=== PATIENT | male | born 1995 | race Caucasian/White ===

== ENCOUNTER 2021-12-05 18:45 | Emergency (ER) | payer OTHER, SELFPAY ==
[2021-12-05 19:04] VITALS: BP 157/111; PULSE 73; RESP 18; TEMP 36.8; O2SAT 99
--- NOTE | 2021-12-05 19:19 | ECG_ITS ---
Measurements Intervals Center Line Rate: 65 P: 20 DC: 145 QRS: 4 QRSD: 98 T: 7 QT: 380 QTc: 397 Interpretive Statements SINUS RHYTHM INCOMPLETE RIGHT BUNDLE BRANCH BLOCK MINIMAL VOLTAGE CRITERIA FOR LVH, CONSIDER NORMAL VARIANT [MEETS CRITERIA IN ONE OF: R(aVL), S(V1), R(V5), R(V5/V6)+S(V1)] NONSPECIFIC T-WAVE ABNORMALITY NO PREVIOUS ECG AVAILABLE FOR COMPARISON Electronically Signed On 12-06-2021 14:51:38 CDT by Vladimir Saunders M.D.
--- NOTE | 2021-12-05 19:19 | ED.GENADULT ---
HPI - General Adult General Chief complaint: Extremity Injury, Upper Stated complaint: shoulder pain History of Present Illness HPI narrative: 26 y/o male. PMHx non-reported. Presents to [facility] today with complaints of left upper back/shoulder blade pain, intermittently for > 3 months. He describes an intermittent 'sharp' pain. Worse with certain activity. Denies falls or trauma. No PURI, dizziness, chest pain, palpitations, dyspnea. No GI upset, epigastric pain, N/V. Has taken Tylenol with mild reliefs. In addition, he is noted to be hypertensive on today's visit. He tells me that he often suffers from anxiety, and has not been taking any medication for anxiety. Client relays that his Primary has seen him for elevated blood pressure and anxiety in the recent past, and that he has had 'normal' labs and chest imaging with no issues. Daily nicotine user. Stopped drinking energy drinks 1 week ago. No additional acute c/o upon PE. Related Data Allergies Allergy/AdvReac Type Severity Reaction Status Date / Time Penicillins Allergy Unknown Unknown Verified 12/05/21 19:15 Review of Systems Review of Systems: CONSTITUTIONAL: Denies fever, chills, sweats. EYES: Denies visual changes, redness, discharge. ENT: Denies rhinorrhea, congestion, sore throat, otalgia. CARDIOVASCULAR: Denies chest pain, palpitations, edema. RESPIRATORY: Denies dyspnea, wheezing, cough GASTROINTESTINAL: Denies abdominal pain, nausea, vomiting, diarrhea. GENITOURINARY: Denies dysuria, hematuria, abnormal discharge SKIN: Denies rash or itching. MUSCULOSKELETAL: Back pain, Lt upper > 3 months. Denies additional joint pain, or myalgia. NEUROLOGIC: Denies numbness, or focal weakness. PSYCHIATRIC: Positive anxiety. Denies depression. Exam Narrative: GENERAL: This is a well-nourished, well-developed adult, in no apparent distress. HEAD: normocephalic. EYES: PERRL. EARS: External ears normal. NOSE: External nose normal. THROAT: Mucous membranes moist. NECK: Neck supple, non-tender without lymphadenopathy, masses or thyromegaly. CARDIOVASCULAR: Regular rate and rhythm without murmurs, gallops, or rubs. RESPIRATORY: Clear to auscultation. Breath sounds equal bilaterally. No wheezes, rales, or rhonchi. GASTROINTESTINAL: Abdomen soft, non-tender, nondistended. Bowel sounds are active. No guarding. SKIN: warm, intact with no suspicious lesions or rash, good texture and turgor. NEURO: Alert, active, and age appropriate. No focal neurologic deficits. Good sensation and discrimination BUE. MUSCULOSKELETAL: With mild reproducible point tenderness lower LT scapula, no dislocation or deformity. Full and unrestricted ROM LUE. Remainder of musculoskeletal exam is negative. Course Course Level of Care: Express Care Visit Vital Signs Vital signs: Vital Signs Temperature 36.8 C 12/05/21 19:04 Pulse Rate 73 12/05/21 19:04 Respiratory Rate 18 12/05/21 19:04 Blood Pressure 157/111 H 12/05/21 19:04 Pulse Oximetry 99 12/05/21 19:04 Oxygen Delivery Room Air 12/05/21 19:04 Temperature 36.8 C 12/05/21 19:04 Pulse Rate 73 12/05/21 19:04 Respiratory Rate 18 12/05/21 19:04 Blood Pressure 140/111 H 12/05/21 19:26 Pulse Oximetry 99 12/05/21 19:04 Oxygen Delivery Room Air 12/05/21 19:04 The patient has been informed that they may have pre-hypertension or Hypertension based on a BP reading in the clinic. It is recommended that the patient call the primary care provider listed on their discharge instructions or a physician of their choice as soon as possible (within 1-2week) to arrange follow up for further evaluation of possible pre-hypertension or hypertension. Medical Decision Making MDM Narrative Medical decision making narrative: -LT upper back pain, non-radiating, > 3 months. -No injury. Otherwise asymptomatic. -Intermittent, reproducible on exam. -Isolated Hypertension. Client reports history of anxi
[2021-12-05 19:26] VITALS: BP 140/111
== END 2021-12-05 19:36 | disposition home or self-care (01) ==
PROVIDERS: Emergency Provider Nurse Practitioner Adult Health
DX: M54.6 Pain in thoracic spine (principal); R03.0 Elevated blood-pressure reading, without diagnosis of hypertension; I45.10 Unspecified right bundle-branch block
CPT/HCPCS: 93005; 99213; G0463

== ENCOUNTER 2022-02-21 10:27 | Emergency (ER) | payer OTHER, SELFPAY ==
--- NOTE | 2022-02-21 10:38 | ED.SKABFB ---
HPI - Skin/Abscess/Foreign Bdy General Chief complaint: Skin/Abscess/Foreign Body Stated complaint: rash Time Seen by Provider: 02/21/22 10:59 Source: patient, RN notes reviewed and old records reviewed Mode of arrival: ambulatory Limitations: no limitations History of Present Illness HPI narrative: 26-year-old male who presents to [facility] with complaints of a rash to his left inner arm and also to his left inner knee region,small area on chest for the past several weeks which has increased in intensity over the past week. Patient states he has been using gold Ruelas lotion to area. Patient denies any new soaps, lotions, any new foods, new medications or any new laundry detergents, denies anyone else in her household having rash. Patient states rash is itchy. Patient denies any difficulty with his breathing or swallowing. MD complaint: rash Onset (ago): week(s) (2-3) Tetanus up to date: yes Treatments prior to arrival: other (Gold Ruelas powder lotion) Related Data Allergies Allergy/AdvReac Type Severity Reaction Status Date / Time Penicillins Allergy Unknown Unknown Verified 02/21/22 11:06 Review of Systems Review of Systems: CONSTITUTIONAL: Denies fever, chills, or sweats. CARDIOVASCULAR: Denies chest pain, palpitations, or edema. RESPIRATORY: Denies cough or dyspnea. SKIN: Reports rash to left inner forearm and elbow region and rash also to left inner knee, small area on chest which is itchy and spreading MUSCULOSKELETAL: Denies joint pain or myalgia. NEUROLOGIC: Denies headache, numbness, or weakness. All systems reviewed & are unremarkable except as noted in HPI and below PMFSH Past Medical History Medical History (Updated 02/21/22 @ 23:21 by Tamra Zhu NP) Anxiety and depression Surgical History Surgical History (Updated 02/21/22 @ 23:23 by Tamra Zhu NP) Hx of right knee surgery Social History Social History (Updated 02/21/22 @ 23:26 by Tamra Zhu NP) Smoking status: Never smoker Alcohol intake: current Alcohol use details: social Substance use: never Substance use type: does not use Gender identity (if verbalized by the patient): Male Comments At time of signature, agree with nursing past medical, surgical, social and family history. There is no relevant family history pertinent to the presenting complaint Exam Narrative: GENERAL: Well-appearing, well-nourished, and in no acute distress. HEAD: Normocephalic, atraumatic. EYES: PERRLA, conjunctivae clear, and EOMI. ENT: Mucous membranes moist. Oropharynx without edema, erythema or lesions. NECK: Supple. No lymphadenopathy CHEST: Clear to auscultation. No respiratory distress. HEART: Regular rate and rhythm. SKIN: Warm, dry.? Patches of erythema which is red and slightly raised asymmetrical and is itchy does ximena NEURO:? Alert and oriented x3. PSYCH: Normal mood and affect Course Course Emergency Course: Patient is aware of diagnosis, understands and agrees to treatment plan.? Anticipatory guidance given.? Patient agrees to follow-up as directed and is aware of reasons to seek care at the emergency department. Portions of this record may have been created with voice recognition software Level of Care: Express Care Visit Vital Signs Vital signs: Vital Signs Temperature 36.8 C 02/21/22 10:53 Pulse Rate 77 02/21/22 10:53 Respiratory Rate 18 02/21/22 10:53 Blood Pressure 160/98 H 02/21/22 10:53 Pulse Oximetry 100 02/21/22 10:53 Oxygen Delivery Room Air 02/21/22 10:53 Temperature 36.8 C 02/21/22 10:53 Pulse Rate 77 02/21/22 10:53 Respiratory Rate 18 02/21/22 10:53 Blood Pressure 160/98 H 02/21/22 10:53 Pulse Oximetry 100 02/21/22 10:53 Oxygen Delivery Room Air 02/21/22 10:53 Reviewed MDM - Skin/Abscess/Foreign Bdy MDM Narrative Medical decision making narrative: Does not appear at this time to be erythema multiforme, bullous, SJS, TEN;
[2022-02-21 10:53] VITALS: BP 160/98; PULSE 77; RESP 18; TEMP 36.8; O2SAT 100
== END 2022-02-21 11:20 | disposition home or self-care (01) ==
PROVIDERS: Emergency Provider Registered Nurse
DX: L25.9 Unspecified contact dermatitis, unspecified cause (principal)
CPT/HCPCS: 99213; G0463

== ENCOUNTER 2022-04-09 11:43 | Emergency (ER) | payer OTHER, SELFPAY ==
[2022-04-09 12:09] VITALS: BP 148/98; PULSE 70; RESP 18; TEMP 36.6; O2SAT 100
--- NOTE | 2022-04-09 12:57 | ED.URI ---
HPI - URI/Sore Throat General Chief Complaint: Upper Respiratory Infection Stated Complaint: nasal congestion,cough Source: patient Mode of arrival: ambulatory Limitations: no limitations History of Present Illness HPI Narrative: 27-year-old male presents to [facility] Care complains of 2 week history of sinus pressure, nasal congestion, cough and runny nose. Patient has been taking [id number] decongestants with little relief. Patient denies sick contacts. Patient denies fever, body aches, chills, nausea, vomiting, diarrhea, shortness of breath or wheezing. MD elicited complaint: rhinorrhea, nasal congestion and sinus pain Onset (ago): week(s) (2) Severity: mild Able to tolerate fluids by mouth: Yes Exacerbating factors: nothing Relieving factors: nothing Associated symptoms: denies other symptoms Treatments prior to arrival: cold medicine Related Data Allergies Allergy/AdvReac Type Severity Reaction Status Date / Time Penicillins Allergy Unknown Unknown Verified 02/21/22 11:06 Review of Systems Constitutional: Constitutional: Denies chills, Denies fatigue, Denies fever(s) and Denies weakness ENT: Denies dysphagia, Denies vertigo, Denies dizziness, Denies epistaxis, Reports nasal congestion and Denies sore throat Comments: Runny nose, sinus pressure Respiratory: Respiratory: Reports cough, Denies dyspnea and Denies wheezing Gastrointestinal: Gastrointestinal: Denies diarrhea, Denies nausea and Denies vomiting Integumentary/Breasts: Skin/Breast: Denies rash Neurologic: Denies vertigo, Denies dizziness, Denies syncope and Denies headache(s) [facility] Past Medical History Medical History Anxiety and depression Surgical History Surgical History Hx of right knee surgery Social History Social History Smoking status: Never smoker Alcohol intake: current Alcohol use details: social Substance use: never Substance use type: does not use Gender identity (if verbalized by the patient): Male Comments At time of signature, I agree with nursing past medical, surgical, social and family history. There is no relevant family history pertinent to the presenting complaint. Exam Const: General: healthy appearing and no acute distress Nutritional Appearance: well nourished Orientation/consciousness: patient oriented x3 Limitations: no limitations HENMT: Head: normal to inspection Ears: external ears normal, TM's normal bilaterally and EAC's normal Face/Nose/Sinus: Normal external nose present Face and sinus: sinus tenderness frontal Mouth: Yes Normal oral and palatal mucosa present Teeth and gingiva: dentition normal Throat: posterior oropharynx normal and uvula midline Other: Moderate nasal congestion noted Eyes: Conjunctivae: conjunctivae normal Resp: Effort & Inspection: normal respiratory effort and not labored Auscultation: clear to auscultation bilaterally, no crackles, no rales, no rhonchi and no wheezes Cardio: Rate: regular rate Rhythm: regular rhythm Heart sounds: no murmurs Skin: General skin exam: normal color Rashes: no rashes Neuro: General: patient oriented x3 Speech: normal speech Psych: Affect: normal affect Attitude: cooperative Course Course Level of Care: Express Care Visit Vital Signs Vital signs: Vital Signs Temperature 36.6 C 04/09/22 12:09 Pulse Rate 70 04/09/22 12:09 Respiratory Rate 18 04/09/22 12:09 Blood Pressure 148/98 H 04/09/22 12:09 Pulse Oximetry 100 04/09/22 12:09 Oxygen Delivery Room Air 04/09/22 12:09 Temperature 36.6 C 04/09/22 12:09 Pulse Rate 70 04/09/22 12:09 Respiratory Rate 18 04/09/22 12:09 Blood Pressure 148/98 H 04/09/22 12:09 Pulse Oximetry 100 04/09/22 12:09 Oxygen Delivery Room Air 04/09/22 12:09 MDM - URI/Sore Throat MDM Na
== END 2022-04-09 13:07 | disposition home or self-care (01) ==
PROVIDERS: Emergency Provider Nurse Practitioner Family
DX: J32.9 Chronic sinusitis, unspecified (principal)
CPT/HCPCS: 99213; G0463

== ENCOUNTER 2022-04-28 20:09 | Emergency (ER) | payer OTHER, SELFPAY ==
[2022-04-28 20:27] VITALS: BP 158/104; PULSE 85; RESP 18; TEMP 36.8; O2SAT 98
--- NOTE | 2022-04-28 21:20 | PC.NURSE ---
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 Patient alert and ambulatory out the ED doors.
== END 2022-04-28 21:20 | disposition left against medical advice (07) ==
LOC: ANHED 21:26
DX: Z53.21 Procedure and treatment not carried out due to patient leaving prior to being seen by health care provider (principal)
CPT/HCPCS: 99199

== ENCOUNTER 2022-09-28 11:25 | Emergency (ER) | payer OTHER, SELFPAY ==
--- NOTE | 2022-09-28 11:30 | ED.HA ---
HPI - Headache General Chief Complaint: Headache Stated Complaint: head discomfort Time Seen by Provider: 09/28/22 11:30 Source: patient Mode of arrival: ambulatory Limitations: no limitations History of Present Illness HPI Narrative: Bennett is a 27-year-old male patient presenting to the clinic today with complaints of headache x1 week. He reports no nausea, vomiting, URI symptoms, fever, or chills. States that the pain feels like a rubber band around the front of his head initially but now it is more so to the left side. The pain comes and goes and is a pressure. He denies any visual changes, dizziness, or head injury. Blood pressure is elevated 148/97-recheck blood pressure manually and was 132/88. Patient does have history of high blood pressure and takes metoprolol. Has been taking Tylenol, ibuprofen, and Excedrin migraine for his symptoms and he states this improves his symptoms momentarily but then the headache comes back. No history of migraine headaches. Reports his pain is a 6/10 currently. Related Data Home Medications Medication Instructions Recorded Confirmed metoprolol tartrate 25 mg tablet 25 mg PO BID 09/28/22 09/28/22 Allergies Allergy/AdvReac Type Severity Reaction Status Date / Time Penicillins Allergy Unknown Unknown Verified 09/28/22 11:48 Review of Systems Review of Systems: Pertinent positives per HPI. Patient denies any fever, chills, rash, visual changes, dizziness, cough, runny nose, sore throat, shortness of breath, chest pain, palpitations, nausea, vomiting, diarrhea, constipation, abdominal pain, or any urinary issues. PMF Past Medical History Medical History Anxiety and depression Surgical History Surgical History Hx of right knee surgery Social History Social History Smoking status: Never smoker Alcohol intake: current Alcohol use details: social Substance use: never Substance use type: does not use Gender identity (if verbalized by the patient): Male Comments At the time of my signature, I reviewed and agree with the nursing past medical, surgical, social, and family history. There is no relevant family history pertinent to the patient complaint. Exam Narrative: General: Well-developed, well nourished, in no apparent distress Head: Normocephalic, atraumatic Eyes: Pupils equally round and reactive to light bilaterally, EOM intact, sclera and conjunctive clear, no discharge, lids normal Ears: TMs intact and clear, ear canals clear, no drainage, grossly hearing normal. Nose: Nares patent, no discharge, no inflammation, no sinus tenderness. Mouth: Oropharynx without lesions or masses, good dentition, MMM. Neck: Supple, trachea midline, no enlargement of anterior or posterior cervical nodes, no thyroid masses or goiter palpable. Cardio: Regular rate and rhythm, s1 and s2 normal, no murmur appreciated. Resp: Clear to auscultation bilaterally anteriorly and posteriorly, no rhonchi, rales, wheezing or rubs Course Course Emergency Course: Portions of this record may have been created with voice recognition software. Level of Care: Express Care Visit Vital Signs Vital signs: Vital signs reviewed MDM - Headache MDM Narrative Medical decision making narrative: At the time of visit patient is resting comfortably on the exam table. I suspect the patient may be having tension headache versus vascular headache. Patient's blood pressure was 132/88 the clinic today. Will send in prescription for some Fioricet to see if this will help his symptoms. Migraine and sinusitis are less likely. Supportive measures were discussed with the patient he voiced understanding of discharge instructions and agrees to treatment plan. Differential Diagnosis Differential diagnosis: Likel
[2022-09-28 11:39] VITALS: BP 148/97; PULSE 74; RESP 16; TEMP 36.7; O2SAT 100
== END 2022-09-28 11:53 | disposition home or self-care (01) ==
PROVIDERS: Emergency Provider Nurse Practitioner Family; PCP Family Medicine
DX: R51.9 Headache, unspecified (principal); I10 Essential (primary) hypertension
CPT/HCPCS: 99213; G0463

== ENCOUNTER 2023-04-02 12:28 | Emergency (ER) | payer OTHER, SELFPAY ==
[2023-04-02 12:50] VITALS: BP 150/83; PULSE 78; RESP 16; TEMP 36.7; O2SAT 100
--- NOTE | 2023-04-02 13:04 | ED.URI ---
HPI - URI/Sore Throat General Chief Complaint: Upper Respiratory Infection Stated Complaint: Congestion History of Present Illness HPI Narrative: 28 y/o male presented for c/o nasal congestion and drainage, cough, sore throat, and hoarse voice over the past 72 hours. Cough is nonproductive. Denies shortness of breath, wheezing, nausea, vomiting, diarrhea, fevers or chills. Taking Mucinex. Tested negative at home for COVID today. Related Data Allergies Allergy/AdvReac Type Severity Reaction Status Date / Time Penicillins Allergy Unknown Unknown Verified 04/02/23 13:00 Review of Systems Review of Systems: CONSTITUTIONAL: Denies body aches, fever, chills, or sweats. EYES: Denies visual changes, redness, or discharge. ENT: reports sore throat, rhinorrhea, congestion, Denies otalgia. CARDIOVASCULAR: Denies chest pain, palpitations, or edema. RESPIRATORY: Denies dyspnea. GASTROINTESTINAL: Denies abdominal pain, nausea, vomiting, or diarrhea. SKIN: Denies rash, itching, or wounds. MUSCULOSKELETAL: Denies back pain, joint pain, or myalgia. NEUROLOGIC: Denies headache [facility] Past Medical History Medical History (Updated 04/02/23 @ 13:32 by Tia Goodman APRN) Anxiety and depression HTN (hypertension) Surgical History Surgical History Hx of right knee surgery Social History Social History Smoking status: Never smoker Alcohol intake: current Alcohol use details: social Substance use: never Substance use type: does not use Gender identity (if verbalized by the patient): Male Exam Narrative: GENERAL: well-appearing, no acute distress. EYES: conjunctivae clear ENT: Mucous membranes moist. TMs pearly crocker with normal light reflex bilaterally; no tragal tenderness. Oropharynx mildly erythematous without lesions. Tonsils enlarged and without exudate. Mild hoarse voice. PND. No drooling, no trismus, uvula midline. No tripod positioning, hot potato voice, or soft palate swelling. NECK: Supple. No lymphadenopathy CHEST: Clear to auscultation, breath sounds equal. HEART: Regular rate and rhythm. No murmur heard. SKIN: Warm, dry, no rash. NEURO: Alert and oriented x3. Course Course Emergency Course: Patient is aware of diagnosis, understands and agrees to treatment plan. Anticipatory guidance given. Patient agrees to follow-up as directed and is aware of reasons to seek care at the emergency department. Portions of this record may have been created with voice recognition software Level of Care: Express Care Visit Vital Signs Vital signs: Vital Signs Temperature 98.0 F 04/02/23 12:50 Pulse Rate 78 04/02/23 12:50 Respiratory Rate 16 04/02/23 12:50 Blood Pressure 150/83 H 04/02/23 12:50 Pulse Oximetry 100 04/02/23 12:50 Oxygen Delivery Room Air 04/02/23 12:50 Temperature 98.0 F 04/02/23 12:50 Pulse Rate 78 04/02/23 12:50 Respiratory Rate 16 04/02/23 12:50 Blood Pressure 150/83 H 04/02/23 12:50 Pulse Oximetry 100 04/02/23 12:50 Oxygen Delivery Room Air 04/02/23 12:50 MDM - URI/Sore Throat MDM Narrative Medical decision making narrative: Neg flu and strep result reviewed with pt. Advise supportive treatments. Patient is appropriate for outpatient treatment and follow-up. Differential Diagnosis Differential diagnosis: Likely upper respiratory infection, viral infection and pharyngitis Lab Data Labs: Strep Screen Presumptive Negative *(Reference Range: Negative)* Discharge Plan Discharge Clinical Impression: Upper respiratory infection Patient Disposition: Home, Self-Care Condition: Stable Instructions: Antibiotic Form, Upper Respiratory Infection (ED) Additional Instructions: Flu negative. Rapid strep swab was negative today You will be no
== END 2023-04-02 14:00 | disposition home or self-care (01) ==
PROVIDERS: Emergency Provider Nurse Practitioner Family
DX: J06.9 Acute upper respiratory infection, unspecified (principal); I10 Essential (primary) hypertension
CPT/HCPCS: 87081; 87804; 87880; 99213; G0463